=== PATIENT | female | born 1990 | race Caucasian/White ===

== ENCOUNTER 2018-06-15 12:56 | Day surgery (SDC) | payer OTHER ==
[2018-06-15] MEDS ORDERED: ONDANSETRON 4 MG/2 ML VIAL IVP STA (13:32)
[2018-06-15] MEDS ORDERED: SODIUM CHLORIDE 0.9% 1,000 ML IV ONE (13:32)
--- NOTE | 2018-06-15 13:33 | ED Physician Documentation ---
PD HPI ABD PAIN - Stated complaint Stated Complaint: R SIDE PX - Chief complaint Chief Complaint: Abd Pain - History obtained from History obtained from: Patient - History of Present Illness Timing - onset: Other (Since yesterday she has had gradual onset waxing and single episode of a loose stool. She has no history of abdominal surgeries. The pain does not radiate. She declines pain medication on initial evaluation. She denies fevers. She saw a urologist yesterday for frequent UTIs, her last UTI was about 6 months ago. She has no current UTI symptoms.) Review of Systems Ten Systems: 10 systems reviewed and negative Constitutional: denies: Fever, Chills Throat: denies: Dental pain / toothache, Sore throat Cardiac: denies: Chest pain / pressure, Palpitations Respiratory: denies: Dyspnea, Cough PD PAST MEDICAL HISTORY - Present Medications Home Medications: Ambulatory Orders Medication Instructions Recorded Confirmed No Known Home Medications 06/15/18 06/15/18 - Allergies Allergies/Adverse Reactions: Allergies Allergy/AdvReac Type Severity Reaction Status Date / Time No Known Drug Allergies Allergy Verified 06/15/18 13:02 PD ED PE NORMAL - Vitals Vital signs reviewed: Yes - General General: Alert and oriented X 3, No acute distress - HEENT HEENT: PERRL, EOMI - Neck Neck: Supple, no meningeal sign, No bony TTP - Cardiac Cardiac: RRR, No murmur - Respiratory Respiratory: No respiratory distress, Clear bilaterally - Abdomen Abdomen: Normal bowel sounds, Soft, Other (++ RLQ TTP, No G/R) - Back Back: No CVA TTP, No spinal TTP - Derm Derm: Normal color, Warm and dry - Extremities Extremities: No edema, No calf tenderness / cord - Neuro Neuro: Alert and oriented X 3, Normal speech Results - Vitals Vitals: Vital Signs - 24 hr 06/15/18 06/15/18 06/15/18 13:00 16:34 19:02 Temperature 36.8 C 37.1 C 37.0 C Heart Rate 85 70 84 Respiratory 18 16 16 Rate Blood Pressure 125/61 113/70 117/92 H O2 Saturation 100 100 100 Oxygen O2 Source Room air - Labs Labs: Laboratory Tests 06/15/18 06/15/18 06/15/18 13:20 13:44 13:44 WBC 7.9 RBC 4.71 Hgb 14.0 Hct 40.3 MCV 85.5 MCH 29.7 MCHC 34.7 RDW 12.8 Plt Count 273 MPV 8.3 Neut # (Auto) 5.0 Lymph # (Auto) 2.3 [place] # (Auto) 0.4 Eos # (Auto) 0.1 Baso # (Auto) 0.1 Absolute Nucleated RBC 0.00 Nucleated RBC % 0.0 Sodium 137 Potassium 3.4 L Chloride 103 Carbon Dioxide 27 Anion Gap 7.0 BUN 10 Creatinine 0.7 Estimated GFR (MDRD) 100 Glucose 71 Calcium 8.8 Total Bilirubin 1.0 AST 15 ALT 13 Alkaline Phosphatase 41 L Total Protein 7.9 Albumin 4.5 Globulin 3.4 Albumin/Globulin Ratio 1.3 Lipase 30 Urine Color YELLOW Urine Clarity CLOUDY Urine pH 6.5 Ur Specific [place] 1.025 Urine Protein NEGATIVE Urine Glucose (UA) NEGATIVE Urine Ketones NEGATIVE Urine Occult Blood NEGATIVE Urine Nitrite POSITIVE H Urine Bilirubin NEGATIVE Urine Urobilinogen 0.2 (NORMAL) Ur Leukocyte Esterase NEGATIVE Urine RBC 0-5 Urine WBC 6-10 H Ur Squamous Epith Cells FEW Squamous Urine Bacteria Moderate H Urine Mucus Few Strands Ur Microscopic Review INDICATED Urine Culture Comments INDICATED Urine HCG, Qual NEGATIVE - Rads (name of study) CT A/P Radiology: EMP read contemporaneously (Equivocal appendiceal findings with dilated mid appendix) PD MEDICAL DECISION MAKING - ED course ED course: 28-year-old woman with a decent exam and story for appendicitis and an equivocal CT and white count. Spoke with the surgeon, Dr. Abbott who will take her to the OR for laparoscopy. Departure - Departure Disposition: ED Transfer to [facility] Clinical Impression: Appendicitis Condition: Stable Discharge Date/Time: 06/15/18 18:12
[2018-06-15 13:43] LABS: BILIRUBIN,URINE NEGATIVE (NEGATIVE); GLUCOSE, URINE (UA) NEGATIVE (NEGATIVE); KETONES,URINE (UA) NEGATIVE (NEGATIVE); LEUKOCYTE ESTERASE, URINE NEGATIVE (NEGATIVE); NITRITE,URINE POSITIVE (NEGATIVE); OCCULT BLOOD,URINE NEGATIVE (NEGATIVE); PH,URINE 6.5 PH (5.0-7.5); PROTEIN,URINE NEGATIVE (NEGATIVE); UROBILINOGEN,URINE 0.2 (NORMAL) E.U./dL (NORMAL)
[2018-06-15 13:45] LABS: CLARITY,URINE CLOUDY (CLEAR)
[2018-06-15 13:46] LABS: HCG UR QUAL NEGATIVE
[2018-06-15 13:51] LABS: BASOPHILS # (AUTO) 0.1 10^3/uL (0.0-0.1); BASOPHILS % (AUTO) 0.7 %; EOSINOPHILS # (AUTO) 0.1 10^3/uL (0.0-0.7); EOSINOPHILS % (AUTO) 0.7 %; LYMPHOCYTES # (AUTO) 2.3 10^3/uL (1.5-3.5); LYMPHOCYTES % (AUTO) 29.8 %; MEAN CORPUSCULAR HEMOGLOBIN 29.7 pg (27.0-31.0); MEAN CORPUSCULAR HGB CONC 34.7 g/dL (32.0-36.0); MEAN CORPUSCULAR VOLUME 85.5 fL (81.0-99.0); MEAN PLATELET VOLUME 8.3 fL (7.9-10.8); MONOCYTES # (AUTO) 0.4 10^3/uL (0.0-1.0); MONOCYTES % (AUTO) 5.5 %; NEUTROPHILS % (AUTO) 63.3 %; PLT - PLATELET COUNT 273 10^3/uL (130-450); RED BLOOD COUNT 4.71 10^6/uL (4.20-5.40); RED CELL DISTRIBUTION WIDTH 12.8 % (12.0-15.0); WHITE BLOOD COUNT 7.9 x10^3/uL (4.8-10.8)
[2018-06-15 13:54] LABS: BACTERIA,URINE Moderate /HPF (None Seen); MUCUS,URINE Few Strands; RBC,URINE 0-5 /HPF (0-5); SQUAMOUS EPITHELIAL CELL,UR FEW Squamous (<= Few)
[2018-06-15 14:02] LABS: ALBUMIN 4.5 g/dL (3.2-5.5); ALBUMIN/GLOBULIN RATIO 1.3 (1.0-2.2); CALCIUM 8.8 mg/dL (8.5-10.3); CREATININE 0.7 mg/dL (0.4-1.0); TOTAL PROTEIN 7.9 g/dL (6.7-8.2)
[2018-06-15] MEDS ORDERED: IOVERSOL 320 100 ML VIAL IVP ONE ×2 (14:25→14:35)
[2018-06-15] MEDS ORDERED: KETOROLAC 30 MG/ML VIAL IVP STA (15:24)
--- NOTE | 2018-06-15 16:11 | CT Report ---
Reason: IV only, RLQ pain Procedure Date: 06/15/2018 Accession Number: [id number] / [id number] Procedure: CT - Abdomen/Pelvis W/ CPT Code: FULL RESULT: EXAM: CT ABDOMEN AND PELVIS WITH CONTRAST. EXAM DATE: 06/15/2018 02:41 PM. CLINICAL HISTORY: IV only, right lower quadrant pain. COMPARISONS: None. TECHNIQUE: Routine helical CT imaging was performed through the abdomen and pelvis. IV contrast: CE. Enteric contrast: No. Reconstructions: Coronal and sagittal. In accordance with CT protocol optimization, one or more of the following dose reduction techniques were utilized for this exam: automated exposure control, adjustment of mA and/or KV based on patient size, or use of iterative reconstructive technique. FINDINGS: Lung Bases: Unremarkable. Liver: Normal. No masses. Gallbladder/Bile Ducts: Decompressed but otherwise normal in appearance. No biliary ductal dilatation. Spleen: Normal. Pancreas: Normal. Adrenal Glands: Normal. Kidneys: Normal. No masses or hydronephrosis. Peritoneal Cavity/Bowel: No free fluid, free air or adenopathy. No masses or acute inflammatory process. The appendix is elongated and well visualized; there is borderline thickening/increased density of 1.5 cm long segment of the mid appendix measuring 8 mm in diameter. There is air within the lumen proximal and distal to this segment. No appreciable periappendiceal inflammation. Reference series 5 image 22, series 3 image 52. Pelvic Organs: Normal. The bladder and visualized pelvic organs are within normal limits. T-shaped IUD is noted within the uterus. Vasculature: No aneurysms or other significant abnormality. Bones: No significant abnormality. Other: None. IMPRESSION: 1. Equivocal appendiceal findings with short segment thickening/increased diameter of the mid appendix as described without other CT findings of acute appendicitis. If appropriate based on clinical and laboratory findings, consider observation followed by repeat imaging as clinically indicated. RADIA
[2018-06-15] MEDS ORDERED: PIPERACILLIN/TAZOBACTAM 3.375 GM in SODIUM CHLORIDE 0.9% MINIBAG 100 ML IV STA (16:26)
[2018-06-15] MEDS ORDERED: oxyCODONE/ACET 5/325 Prepack 4 PO STA (17:24)
--- NOTE | 2018-06-15 17:27 | ANESTHESIA ---
Pre-Anesthesia VS, & Labs - Diagnosis appendicitis - Procedure laparoscopic appendectomy Vital Signs: Temp Pulse Resp BP Pulse Ox 37.1 C 70 16 113/70 100 06/15/18 16:34 06/15/18 16:34 06/15/18 16:34 06/15/18 16:34 06/15/18 16:34 Height 5 ft Weight (kg) 68.039 kg Body Mass Index 29.2 - NPO Other (last ate 12 noon today) - Is Patient ?: No - Lab Results Current Lab Results: Laboratory Tests 06/15/18 13:44: Sodium 137, Potassium 3.4 L, Chloride 103, Carbon Dioxide 27, Anion Gap 7.0, BUN 10, Creatinine 0.7, Estimated GFR (MDRD) 100, Glucose 71, Calcium 8.8, Total Bilirubin 1.0, AST 15, ALT 13, Alkaline Phosphatase 41 L, Total Protein 7.9, Albumin 4.5, Globulin 3.4, Albumin/Globulin Ratio 1.3, Lipase 30 06/15/18 13:44: WBC 7.9, RBC 4.71, Hgb 14.0, Hct 40.3, MCV 85.5, MCH 29.7, MCHC 34.7, RDW 12.8, Plt Count 273, MPV 8.3, Neut # (Auto) 5.0, Lymph # (Auto) 2.3, [place] # (Auto) 0.4, Eos # (Auto) 0.1, Baso # (Auto) 0.1, Absolute Nucleated RBC 0.00, Nucleated RBC % 0.0 Fish Bones: 06/15/18 13:44 06/15/18 13:44 Home Medications and Allergies Home Medications: Ambulatory Orders No Known Home Medications 06/15/18 Active Medications Oxycodone/Acetaminophen (Percocet 5 Mg/325 Mg Prepack 4) 1 bottle PO ONCE STA Stop: 06/15/18 17:25 No Known Home Medications 06/15/18 Allergies/Adverse Reactions: Allergies Allergy/AdvReac Type Severity Reaction Status Date / Time No Known Drug Allergies Allergy Verified 06/15/18 13:02 Anes History & Medical History - Anesthetic History Anesthesia Complications: reports: No previous complications Family history of Anesthesia Complications: Denies Family history of Malignant Hyperthermia: Denies - Medical History Cardiovascular: reports: None Pulmonary: reports: None Gastrointestinal: reports: None Urinary: reports: Chronic bladder infection Neuro: reports: None Musculoskeletal: reports: None Endocrine/Autoimmune: reports: None Blood Disorders: reports: None Skin: reports: None Smoking Status: Never smoker Exam General: Alert, Oriented x3, Cooperative, No acute distress Dental: Other (caps) Mouth Openin Fingerbreadth Neck Mobility: Normal Mallampati classification: II Thyromental Distance: 4-6 cm Respiratory: Lungs clear, Normal breath sounds, No respiratory distress, No accessory muscle use Cardiovascular: Regular rate, Normal S1, Normal S2 Mental/Cognitive Status: Alert/Oriented X3, Normal for patient Cognitive Status: Within normal limits Plan Anesthesia Type: General Consent for Procedure(s) Verified and Reviewed: No Code Status: Attempt Resuscitation ASA classification: 1-Healthy patient Is this case an emergency?: Yes
[2018-06-15] MEDS ORDERED: BUPIVACAINE 0.5% PF 30 ML VIAL ONE (17:52)
[2018-06-15] MEDS ORDERED: BUPIVACAINE 0.5% PF 30 ML VIAL INFIL ONE (18:32)
[2018-06-15] MEDS ORDERED: LACTATED RINGERS 1,000 ML IV ONE (18:33)
[2018-06-15] MEDS ORDERED: SUGAMMADEX 200 MG/2 ML VIAL IVP ONE ×2 (18:41→19:00)
--- NOTE | 2018-06-15 18:56 | CONSULTATION NOTE ---
Referring Provider Name of Referring Provider:: Dr. Fred Osman Consult Date: 06/15/18 Chief Complaint - Chief Complaint Chief Complaint: Right lower quadrant pain History of Present Illness - Admitted From Admitted From:: Not admittedkept as an outpatient. - History Obtained From Records Reviewed: Yes History obtained from: Patient and , Dr. Osman Exam Limitations: None - History of Present Illness HPI Comment/Other: I was called by Dr. Acosta to evaluate this very pleasant 28-year-old female for the possibility of acute appendicitis. The patient was evaluated in room 3 at [facility]'s emergency department. The patient has a 24- hour history of epigastric pain localizing to the right lower quadrant associated with anorexia and nausea but no vomiting. The pain was worsening necessitating her coming to the emergency department. Please note the history and physical was done in room 3 in the presence of her and 3 of her 4 children. She is allergic to fresh pineapple. 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 : reports: Chronic bladder infection HEENT: reports: None Psych: reports: None Musculoskeletal: reports: None Derm: reports: None MRSA Hx?: No - POLST Patient has POLST: No Meds/Allgy - Home Medications Home Medications: Ambulatory Orders Medication Instructions Recorded Confirmed No Known Home Medications 06/15/18 06/15/18 - Allergies Allergies/Adverse Reactions: Allergies Allergy/AdvReac Type Severity Reaction Status Date / Time No Known Drug Allergies Allergy Verified 06/15/18 13:02 Review of Systems - Constitutional Constitutional: denies: Fatigue, Fever - Eyes Eyes: denies: Pain - Ears, Nose & Throat Ears, Nose & Throat: denies: Ear pain - Cardiovascular Cariovascular: denies: Irregular heart rate, Palpitations, Chest pain - Respiratory Respiratory: denies: Cough, Sputum production, Wheezing - Gastrointestinal Gastrointestinal: reports: Abdominal pain, Nausea. denies: Vomiting - Genitourinary Genitourinary: denies: Dysuria - Musculoskeletal Musculoskeletal: denies: Muscle pain, Back pain - Integumentary Integumentary: denies: Rash - Neurological Neurological: denies: General weakness, Focal weakness Exam - Vital Signs Reviewed Vital Signs: Yes Vital Signs: Vital Signs x48h Temp Pulse Resp BP Pulse Ox 06/15/18 16:34 37.1 C 70 16 113/70 100 06/15/18 13:00 36.8 C 85 18 125/61 100 - Physical Exam General Appearance: positive: No acute distress Eyes Bilateral: positive: No lid inflammation, Conjunctivae nml, No scleral icterus ENT: positive: Dry mucous membranes Neck: positive: Trachea midline Respiratory: positive: Chest non-tender, No respiratory distress, Breath sounds nml Cardiovascular: positive: Regular rate & rhythm, No murmur, No gallop Abdomen: positive: No organomegaly, Nml bowel sounds, Tenderness (At McBurney's point.) Skin: positive: Color nml Extremities: positive: Non-tender, Nml appearance Neurologic/Psychiatric: positive: Oriented x3 Conclusion/Plan - Diagnosis Diagnosis: Acute appendicitis (nonruptured) - Plan Plan: Laparoscopic appendectomy, possible open appendectomy. The indications, procedure, alternatives including no surgery, possible risks including infection (deep or superficial), bleeding requiring transfusion (with all of its risks), and were fully explained to the patient and all questions answered. I also explained the pathophysiology. I explained that following the surgery I did not want her lifting anything over 15 pounds for 6 weeks to allow for optimal healing and to decrease the likelihood that a hernia would occur. All questions were fully answered. Verbal and written consent was obtained. The patient, in preparation for surgery will be nothing by mouth, and receive 3.375 g of Zosyn with induction. I asked her to contact me with any surgical questions and her concerns and she stated that she would. I asked her to let me know if there is any way we can make her stay at [facility] more comfortable and she stated that she would let me know. The plan is to do this operation as an outpatient procedure and to discharge her home following the procedure. 45 minutes of [id number] time spent with the patient, the majority of which was spent in discussion, coordination of care, and completion of the requisite paperwork - Lab Results Lab results reviewed: Yes Fish Bones: 06/15/18 13:44 06/15/18 13:44 - Diagnostic Imaging Results Diagnostic Imaging Results: positive: Final report reviewed, Read independently Diagnostic Imaging Results Comments: Somewhat equivocal findings on radiology but consistent with a mid appendiceal fecalith.
[2018-06-15] MEDS ORDERED: PROPOFOL 200 MG/20 ML VIAL IVP ONE (19:00)
[2018-06-15] MEDS ORDERED: fentaNYL 100 MCG/2 ML VIAL IVP ONE (19:00)
[2018-06-15] MEDS ORDERED: ONDANSETRON 4 MG/2 ML VIAL IVP ONE (19:00)
[2018-06-15] MEDS ORDERED: ACETAMINOPHEN 1,000 MG/100 ML 100 ML IV ONE (19:00)
[2018-06-15] MEDS ORDERED: ROCURONIUM 50 MG/5 ML VIAL IVP ONE (19:00)
[2018-06-15] MEDS ORDERED: KETOROLAC 30 MG/ML VIAL IVP ONE (19:00)
[2018-06-15] MEDS ORDERED: HYDROcod/ACETAM 5/325 MG TABLET PO PRN (19:02)
[2018-06-15] MEDS ORDERED: HYDROmorphone 0.5 MG/0.5 ML SYRINGE IVP PRN (19:02)
[2018-06-15] MEDS ORDERED: ONDANSETRON 4 MG/2 ML VIAL IVP PRN (19:02)
--- NOTE | 2018-06-15 19:02 | OPERATIVE REPORT ---
Operative Report - General Procedure Date: 06/15/18 Planned Procedure: Laparoscopic appendectomy, possible open appendectomy Pre-Op Diagnosis: Acute appendicitis (nonruptured) Procedure Performed: Laparoscopic appendectomy Post Op Diagnosis: Same - Procedure Note Primary Surgeon: Dr. Krishna Abbott Anesthesia Provider: Dr. Krishna Zuniga Anesthesia Technique: General ET tube, Local (30 mL of half percent Marcaine) IV Fluids (mL): 500 Estimated Blood Loss (mL): 5 Drain/Tube Type: Other (None.) Complications: None. - Other Other Information/Narrative: OPERATIVE DESCRIPTION/REPORT: After verbal and written informed consent was obtained detailing the risks of infection, bleeding requiring transfusion with its risks, and , and after I met with the patient confirming the surgery and the site of the surgery, the patient was brought to the operative suite and placed supine on the operating table. Great care was taken to avoid pressure points to prevent pressure necrosis or nerve injury. Monitoring devices were applied along with TEDs and pneumatic compressive stockings (to prevent DVT). The patient received preoperative antibiotics for surgical prophylaxis. Dr. Krishna Zuniga sedated and anesthetized the patient for the entire procedure. The patient was prepped and draped in the usual sterile manner. With the patient draped my initials were clearly visible. A "time in" then confirmed that the patient was identified with 3 identifiers (name, date and medical record number), the history and physical was in the chart, the signed consent confirming the procedure was in the chart, the patient was in the correct position, the aforementioned prophylactic measures were in place or given, we had the correct personnel and equipment to complete the procedure and that anesthesia, surgery and nursing were given an opportunity to express any concerns. With the agreement of everyone in the room, we proceeded with the operation. A 2 cm incision umbilical incition was made and dissection down to the fascia was completed in a blunt and sharp manner. The fascia was then cleared of subcutaneous tissue using a tonsil clamp and a small incision was made in the fascia gaining entry into the abdomen without incident. A 12 mm blunt tipped balloon tipped Franklin port was placed into the abdomen and the balloon inflated to keep it in place. The pneumoperitoneum was then established using carbon dioxide insufflation to a steady state pressure of 15 mmHg. Two additional 5 mm ports were placed in the midline above and below the umbilicus. The patient was then rotated slightly to their left and slightly head down (Trendelenberg). The appendix was clearly identified and noted to be thickened and clearly consistent with acute appendicitis. The end of the appendix was grasped with a Prestige grasper and lifted anteriorly thus revealing the appendiceal mesentery. The mesentery was taken using sequential application of the Ligasure until the base of the appendix was visualized without any adherent tissue. Adhesions to the abdominal wall were taken using sequential application of the LigaSure. The base of the appendix was then stapled and transected using a laparoscopic vascular stapler. Visualization of the staple line revealed absolutely no bleeding or leak of bowel contents. Photographs were taken. The appendix was then place into an endopouch for the remainder of the case. The patient was then rotated to lie flat. The fascia and skin were then injected with the 30 cc of % marcaine for pain control. The insufflation was released and the ports removed. With the removal of the umbilical port the Endopouch containing the appendix was also removed. The fascial defect was then approximated using 0-Vicryl suture in a simple interrupted manner taking care to bury the knots. The skin incisions were approximated with 4-0 Monocryl in a subcuticular fashion. The surgical prep was removed, the skin was prepped with benzoin and steristrips were applied. A dressing was applied. At this point a time out was performed that confirmed that all the counts were correct, the procedure that was performed, the blood loss, the urine output, the IV fluids administered, and the patients condition. Having tolerated the procedure well, the patient was subsequently extubated and taken to recovery room in good and stable condition. [employer] disclaimer: This document was created in part using voice recognition technology. Because of the inherent limitations of the system ([employer]'s [employer] Dict[employer] user manual states that the licensee understands that speech recognition is a statistical process and that recognition errors are inherent in the process), occasional same sounding word substitutions and grammatical errors do occur and persist despite proofreading. Please read this document for context.
[2018-06-15] MEDS: fentaNYL 100 MCG/2 ML VIAL ONE ×2 (19:14→19:21)
[2018-06-15] MEDS ORDERED: SODIUM CHLORIDE FLUSH 0.9% 10 ML SYRINGE ONE (21:38)
[2018-06-15 22:37] VITALS: BP 101/59
== END 2018-06-15 23:00 | disposition home or self-care (01) ==
LOC: ED 12:56 → SDS 17:16 → MS2 19:22 → SDS 23:00
PROVIDERS: ATTEND Surgery
PROC: 0DTJ4ZZ Resection of Appendix, Percutaneous Endoscopic Approach (ICD-10-PCS; principal; 2018-06-15 18:22)
DX: K35.80 Unspecified acute appendicitis (principal); Z87.440 Personal history of urinary (tract) infections
CPT/HCPCS: 36415; 44970; 74177; 80053; 81001; 81025; 83690; 85025; 87086; 87181; 96361; 96365; 96375; 99283; 99284; A9270; J0131; J7120; Q9967; 81003

== ENCOUNTER 2018-07-03 12:49 | Emergency (ER) | payer OTHER ==
[2018-07-03] MEDS ORDERED: MORPHINE 2 MG/ML CARPUJECT IVP STA (13:44)
[2018-07-03] MEDS ORDERED: ONDANSETRON 4 MG/2 ML VIAL IVP STA (13:44)
--- NOTE | 2018-07-03 13:46 | ED Physician Documentation ---
PD HPI ABD PAIN - Stated complaint Stated Complaint: SIDE PX - Chief complaint Chief Complaint: Abd Pain - History obtained from History obtained from: Patient - History of Present Illness Timing - onset: Yesterday (She had a laparoscopic appendectomy a little over [address] was equivocal, the pathology was negative. She did have a concomitant UTI. She has had on and off mild right-sided abdominal pain ever since worse since yesterday with mild nausea but no lack of appetite or fevers. She is on her menses at the normal time just finishing up.) Review of Systems Ten Systems: 10 systems reviewed and negative Constitutional: denies: Fever, Chills Cardiac: denies: Chest pain / pressure, Palpitations GI: reports: Abdominal Pain, Nausea. 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 : Chronic bladder infection HEENT: None Psych: None Musculoskeletal: None Derm: None - Past Surgical History Past Surgical History: No - Present Medications Home Medications: Ambulatory Orders Medication Instructions Recorded Confirmed Hydrocodone/Acetaminophen 1 - 2 each PO Q6H PRN #7 tablet 07/03/18 [Hydrocodon-Acetaminophen 5-325] Ondansetron Odt [Zofran] 4 mg TL Q6H PRN #7 tablet 07/03/18 - Allergies Allergies/Adverse Reactions: Allergies Allergy/AdvReac Type Severity Reaction Status Date / Time No Known Drug Allergies Allergy Verified 07/03/18 13:09 - Social History Does the pt smoke?: No Smoking Status: Never smoker Does the pt drink ETOH?: Yes Does the pt have substance abuse?: No - Immunizations Immunizations are current?: Yes - POLST Patient has POLST: No PD ED PE NORMAL - Vitals Vital signs reviewed: Yes - General General: Alert and oriented X 3, No acute distress - Respiratory Respiratory: No respiratory distress, Clear bilaterally - Abdomen Abdomen: Normal bowel sounds, Soft, Other (Very mild right-sided abdominal tenderness, laparoscopic port incisions look great.) - Back Back: No CVA TTP, No spinal TTP - Derm Derm: Normal color, Warm and dry - Extremities Extremities: No edema, No calf tenderness / cord - Neuro Neuro: Alert and oriented X 3, Normal speech Results - Vitals Vitals: Vital Signs - 24 hr 07/03/18 13:05 Temperature 36.2 C L Heart Rate 84 Respiratory 14 Rate Blood Pressure 115/79 O2 Saturation 100 Oxygen O2 Source Room air - Labs Labs: Laboratory Tests 07/03/18 07/03/18 07/03/18 13:55 13:58 13:58 WBC 6.9 RBC 4.72 Hgb 13.8 Hct 40.6 MCV 86.1 MCH 29.2 MCHC 33.9 RDW 13.2 Plt Count 308 MPV 8.2 Neut # (Auto) 4.4 Lymph # (Auto) 2.0 [place] # (Auto) 0.4 Eos # (Auto) 0.1 Baso # (Auto) 0.1 Absolute Nucleated RBC 0.00 Nucleated RBC % 0.0 Sodium 137 Potassium 3.8 Chloride 104 Carbon Dioxide 27 Anion Gap 6.0 BUN 12 Creatinine 0.7 Estimated GFR (MDRD) 100 Glucose 81 Calcium 9.1 Total Bilirubin 1.0 AST 16 ALT 16 Alkaline Phosphatase 39 L Total Protein 7.9 Albumin 4.6 Globulin 3.3 Albumin/Globulin Ratio 1.4 Lipase 29 Urine Color LT. YELLOW Urine Clarity CLEAR Urine pH 7.0 Ur Specific [place] <=1.005 Urine Protein NEGATIVE Urine Glucose (UA) NEGATIVE Urine Ketones NEGATIVE Urine Occult Blood NEGATIVE Urine Nitrite NEGATIVE Urine Bilirubin NEGATIVE Urine Urobilinogen 0.2 (NORMAL) Ur Leukocyte Esterase NEGATIVE Ur Microscopic Review NOT INDICATED Urine Culture Comments NOT INDICATED Urine HCG, Qual NEGATIVE PD MEDICAL DECISION MAKING - ED course ED course: 28-year-old woman who is about 2 weeks out from laparoscopic appendectomy, noted to be actually had negative lap based on pathology but had a concomitant UTI at the time presents again with right-sided abdominal pain but a fairly benign examination. Her diagnostics are negative without a white count or abnormal urinalysis. She was reexamined at 2:45 PM and was all but nontender. I offered repeat CT imaging versus watchful waiting and she opted for the latter. Departure - Departure Disposition: 01 Home, Self Care Clinical Impression: Abdominal pain Qualifiers: Abdominal location: right lower quadrant Qualified Code(s): R10.31 - Right lower quadrant pain Condition: Good Record reviewed to determine appropriate education?: Yes Instructions: ED Abdominal Pain Unkn Cause Prescriptions: Hydrocodone/Acetaminophen [Hydrocodon-Acetaminophen 5-325] 1 - 2 each PO Q6H PRN #7 tablet PRN Reason: pain Ondansetron Odt [Zofran] 4 mg TL Q6H PRN #7 tablet PRN Reason: Nausea / Vomiting Comments: Return immediately if you develop a fever or worsen. Or if not better in 12-24 hours for reevaluation.
[2018-07-03] MEDS ORDERED: MORPHINE 2 MG/ML CARPUJECT ONE (13:56)
[2018-07-03 14:15] LABS: BASOPHILS # (AUTO) 0.1 10^3/uL (0.0-0.1); BASOPHILS % (AUTO) 1.3 %; EOSINOPHILS # (AUTO) 0.1 10^3/uL (0.0-0.7); EOSINOPHILS % (AUTO) 1.1 %; HGB - HEMOGLOBIN 13.8 g/dL (12.0-16.0); MEAN CORPUSCULAR HEMOGLOBIN 29.2 pg (27.0-31.0); MEAN CORPUSCULAR HGB CONC 33.9 g/dL (32.0-36.0); MEAN CORPUSCULAR VOLUME 86.1 fL (81.0-99.0); MEAN PLATELET VOLUME 8.2 fL (7.9-10.8); MONOCYTES # (AUTO) 0.4 10^3/uL (0.0-1.0); MONOCYTES % (AUTO) 5.2 %; NEUTROPHILS # (AUTO) 4.4 10^3/uL (1.5-6.6); NEUTROPHILS % (AUTO) 63.4 %; PLT - PLATELET COUNT 308 10^3/uL (130-450); RED BLOOD COUNT 4.72 10^6/uL (4.20-5.40); RED CELL DISTRIBUTION WIDTH 13.2 % (12.0-15.0); WHITE BLOOD COUNT 6.9 x10^3/uL (4.8-10.8)
[2018-07-03 14:21] LABS: ALBUMIN 4.6 g/dL (3.2-5.5); ALBUMIN/GLOBULIN RATIO 1.4 (1.0-2.2); CALCIUM 9.1 mg/dL (8.5-10.3); CREATININE 0.7 mg/dL (0.4-1.0); TOTAL PROTEIN 7.9 g/dL (6.7-8.2)
[2018-07-03 14:36] LABS: BILIRUBIN,URINE NEGATIVE (NEGATIVE); GLUCOSE, URINE (UA) NEGATIVE (NEGATIVE); KETONES,URINE (UA) NEGATIVE (NEGATIVE); LEUKOCYTE ESTERASE, URINE NEGATIVE (NEGATIVE); NITRITE,URINE NEGATIVE (NEGATIVE); OCCULT BLOOD,URINE NEGATIVE (NEGATIVE); PROTEIN,URINE NEGATIVE (NEGATIVE); UROBILINOGEN,URINE 0.2 (NORMAL) E.U./dL (NORMAL)
[2018-07-03 14:38] LABS: CLARITY,URINE CLEAR (CLEAR); HCG UR QUAL NEGATIVE
[2018-07-03 15:12] VITALS: BP 115/80
== END 2018-07-03 15:15 | disposition home or self-care (01) ==
LOC: ED 12:49
DX: R10.31 Right lower quadrant pain (principal); Z98.890 Other specified postprocedural states
CPT/HCPCS: 36415; 80053; 81001; 81003; 81025; 83690; 85025; 87086; 96374; 99283

== ENCOUNTER 2018-10-09 13:08 | Outpatient (CLI) | payer OTHER | END 2018-10-09 13:09 | disposition home or self-care (01) | LOC: SC 13:08 | PROVIDERS: ATTEND Internal Medicine Pulmonary Disease | DX: R06.83 Snoring (principal); R06.81 Apnea, not elsewhere classified; R41.89 Other symptoms and signs involving cognitive functions and awareness; G47.10 Hypersomnia, unspecified; G47.8 Other sleep disorders; R51 Headache | CPT/HCPCS: 99203; 99212 ==

== ENCOUNTER 2018-11-23 20:25 | Outpatient (CLI) | payer OTHER | END 2018-11-23 20:26 | disposition home or self-care (01) | LOC: SC 20:25 | PROVIDERS: ATTEND Internal Medicine Pulmonary Disease | DX: R06.83 Snoring (principal); G47.8 Other sleep disorders | CPT/HCPCS: 95810 ==

== ENCOUNTER 2018-12-18 15:36 | Outpatient (CLI) | payer OTHER | END 2018-12-18 15:37 | disposition home or self-care (01) | LOC: SC 15:36 | PROVIDERS: ATTEND Nurse Practitioner Family | DX: R06.83 Snoring (principal); G47.10 Hypersomnia, unspecified; R53.83 Other fatigue | CPT/HCPCS: 99212; 99213 ==

== ENCOUNTER 2019-11-07 17:22 | Emergency (ER) | payer OTHER ==
[2019-11-07 17:53] VITALS: BP 125/87
[2019-11-07] MEDS: CYCLOBENZAPRINE 10 MG TABLET PO STA (18:16)
--- NOTE | 2019-11-07 18:16 | ED Physician Documentation ---
History of Present Illness - Stated complaint Stated Complaint: NECK PAIN - Chief complaint Chief Complaint: Trauma Hd/Nk - History obtained from History obtained from: Patient - History of Present Illness Timing: Today Pain level max: 8 Pain level now: 8 - Additonal information Additional information: 29-year-old female states that she was driving today when she felt like she had a cramp in her neck, she twisted her neck and now feels like there is a spasm in the back of her neck. Has not taken anything for this. Drove straight to the emergency department. No numbness or tingling. No syncope or near syncope. No anterior or lateral neck pain. 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 : Chronic bladder infection HEENT: None Psych: None Musculoskeletal: None Derm: None - Past Surgical History Past Surgical History: No General: Appendectomy - Present Medications Home Medications: Ambulatory Orders Medication Instructions Recorded Confirmed Cyclobenzaprine [Flexeril] 10 mg PO TID PRN #20 tablet 11/07/19 Meloxicam [Mobic] 7.5 mg PO BID PRN #20 tablet 11/07/19 - Allergies Allergies/Adverse Reactions: Allergies Allergy/AdvReac Type Severity Reaction Status Date / Time No Known Drug Allergies Allergy Verified 11/07/19 17:28 - Social History Does the pt smoke?: No Smoking Status: Never smoker Does the pt drink ETOH?: Yes Does the pt have substance abuse?: No - Immunizations Immunizations are current?: Yes - POLST Patient has POLST: No PD ED PE NORMAL - Vitals Vital signs reviewed: Yes - General General: Alert and oriented X 3, No acute distress, Well developed/nourished - HEENT HEENT: Ears normal, Moist mucous membranes, Pharynx benign - Neck Neck: Supple, no meningeal sign, No bony TTP, No JVD, No bruit, Other (Tender to palpation right posterior neck. No midline tenderness. No step-off or deformity. Limited range of motion secondary to pain.) - Cardiac Cardiac: RRR, No murmur - Respiratory Respiratory: No respiratory distress, Clear bilaterally - Derm Derm: Warm and dry - Extremities Extremities: Normal ROM s pain - Neuro Neuro: Alert and oriented X 3, machine heel seat fitter 2-12 intact, No motor deficit, No sensory deficit, Normal speech - Psych Psych: Normal mood, Normal affect Results - Vitals Vitals: Vital Signs - 24 hr 11/07/19 11/07/19 17:28 17:52 Temperature 37.2 C Heart Rate 89 79 Respiratory 18 18 Rate Blood Pressure 123/80 125/87 H O2 Saturation 100 97 Oxygen O2 Source Room air PD MEDICAL DECISION MAKING - ED course Complexity details: considered differential, d/w patient ED course: Patient with what appears to be a neck spasm. Will place on meloxicam and Flexeril for home. Encouraged gentle stretching. Patient is well-appearing, nontoxic. Afebrile. No indication for imaging. No neurological deficits. Patient counseled regarding signs and symptoms for which I believe and urgent re-evaluation would be necessary. Patient with good understanding of and agreement to plan and is comfortable going home at this time This document was made in part using voice recognition software. While efforts are made to proofread this document, sound alike and grammatical errors may occur. Departure - Departure Disposition: 01 Home, Self Care Clinical Impression: Neck muscle spasm Condition: Good Instructions: ED Spasm Neck No Injury Follow-Up: Your,doctor in 1 week [Other] Prescriptions: Cyclobenzaprine [Flexeril] 10 mg PO TID PRN #20 tablet PRN Reason: Spasms Meloxicam [Mobic] 7.5 mg PO BID PRN #20 tablet PRN Reason: Pain Comments: Continue gentle stretching at home. Return if you worsen. Follow-up with your doctor for further care. Ice and/or heat may help as well. Do not drive or operate heavy machinery while taking the Flexeril.
[2019-11-07] MEDS: MELOXICAM 7.5 MG TABLET PO STA (18:17)
== END 2019-11-07 18:35 | disposition home or self-care (01) ==
LOC: ED 17:22
DX: M62.838 Other muscle spasm (principal)
CPT/HCPCS: 99282; 99284; A9270

== ENCOUNTER 2021-11-14 02:27 | Emergency (ER) | payer OTHER ==
--- NOTE | 2021-11-14 03:46 | ED Physician Documentation ---
PD HPI FEMALE - Stated complaint Stated Complaint: FEMALE - Chief complaint Chief Complaint: UTI - History obtained from History obtained from: Patient - History of Present Illness Timing - onset: Yesterday Timing - details: Gradual onset Associated symptoms: Dysuria, Urinary frequency. No: Fever Contributing factors: No: Recently seen: Not recently seen - Additional information Additional information: c/o burning dysuria, urinary frequency with little UO at a time. Symptoms began yesterday. Denies . She also wants to be tested for STDs. She has small amount vaginal discharge although she says not unusual for her Review of Systems Constitutional: denies: Fever GI: denies: Abdominal Pain : reports: Dysuria, Frequency, Discharge. 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 : Chronic bladder infection HEENT: None Psych: None Musculoskeletal: None Derm: None Other Past Medical History: Taking duloxetine for stomach issues - Past Surgical History Past Surgical History: No General: Appendectomy - Present Medications Home Medications: Ambulatory Orders Medication Instructions Recorded Confirmed DULoxetine [Cymbalta] 30 mg PO DAILY 11/14/21 11/14/21 - Allergies Allergies/Adverse Reactions: Allergies Allergy/AdvReac Type Severity Reaction Status Date / Time No Known Drug Allergies Allergy Verified 11/14/21 02:38 - Social History Does the pt smoke?: No Smoking Status: Never smoker Does the pt drink ETOH?: Yes Does the pt have substance abuse?: No - Immunizations Immunizations are current?: Yes - POLST Patient has POLST: No PD ED PE NORMAL - Vitals Vital signs reviewed: Yes - General General: Alert and oriented X 3, No acute distress, Well developed/nourished - Abdomen Abdomen: Soft, Non tender - Back Back: No CVA TTP Results - Vitals Vitals: Oxygen O2 Source Room air - Labs Labs: Laboratory Tests 11/14/21 11/14/21 02:47 02:47 Urine Color YELLOW Urine Clarity CLEAR Urine pH 6.0 Ur Specific [place] 1.015 Urine Protein NEGATIVE Urine Glucose (UA) NEGATIVE Urine Ketones NEGATIVE Urine Occult Blood NEGATIVE Urine Nitrite NEGATIVE Urine Bilirubin NEGATIVE Urine Urobilinogen 0.2 (NORMAL) Ur Leukocyte Esterase NEGATIVE Ur Microscopic Review NOT INDICATED Urine Culture Comments NOT INDICATED Urine HCG, Qual NEGATIVE Chlam trachomat DNA PCR NEGATIVE N.gonorrhoeae DNA (PCR) NEGATIVE T. vaginalis (PCR) NEGATIVE PD MEDICAL DECISION MAKING - ED course Complexity details: reviewed results, re-evaluated patient, considered differential, d/w patient ED course: Despite UTI symptoms, UA is normal. urine HCG is negative. Negative test for gonorrhea, chlamydia, trichomoniasis. Results reviewed with patient. Etiology of symptoms unclear at this time, encouraged to return if worse, follow up with primary care provider if symptoms do not resolve by Tuesday Departure - Departure Disposition: Home, Self Care Clinical Impression: Dysuria Condition: Good Instructions: ED Dysuria Uncertain Cause Comments: There is no evidence of urinary tract infection on the urinalysis performed tonight. You were also tested for gonorrhea, chlamydia, and trichomoniasis (these are sexually transmitted infections); these tests also resulted negative. The cause of your symptoms is not apparent at this time. Please return to the emergency department if your symptoms worsen or if you develop new concerning signs/symptoms (such as fever, abdominal or pelvic pain). Discharge Date/Time: 11/14/21 06:52
[2021-11-14 03:54] LABS: BILIRUBIN,URINE NEGATIVE (NEGATIVE); GLUCOSE, URINE (UA) NEGATIVE (NEGATIVE); KETONES,URINE (UA) NEGATIVE (NEGATIVE); LEUKOCYTE ESTERASE, URINE NEGATIVE (NEGATIVE); NITRITE,URINE NEGATIVE (NEGATIVE); OCCULT BLOOD,URINE NEGATIVE (NEGATIVE); PROTEIN,URINE NEGATIVE (NEGATIVE); UROBILINOGEN,URINE 0.2 (NORMAL) E.U./dL (NORMAL)
[2021-11-14 03:56] LABS: CLARITY,URINE CLEAR (CLEAR); HCG UR QUAL NEGATIVE
[2021-11-14 06:33] LABS: CHLAMYDIA TRACHOMATIS DNA NEGATIVE (NEGATIVE); NEISSERIA GONORRHOEAE DNA NEGATIVE (NEGATIVE); TRICHOMONAS VAGINALIS DNA NEGATIVE (NEGATIVE)
[2021-11-14] MEDS ORDERED: PHENAZOPYRIDINE 100 MG TABLET PO STA (06:43)
[2021-11-14 07:09] VITALS: BP 116/64
== END 2021-11-14 06:52 | disposition home or self-care (01) ==
LOC: ED 02:27
DX: R30.0 Dysuria (principal); R35.0 Frequency of micturition
CPT/HCPCS: 81003; 81025; 87491; 87591; 87661; 99282; 99283; A9270; 81001; 87086

== ENCOUNTER 2023-11-02 11:52 | Emergency (ER) | payer OTHER ==
[2023-11-02 12:06] VITALS: O2SAT 100
--- NOTE | 2023-11-02 12:59 | ED Physician Documentation ---
PD HPI UPPER EXT INJURY - Stated complaint Stated Complaint: RT SHOULDER PX - Chief complaint Chief Complaint: Ext Problem - History obtained from History obtained from: Patient - Additonal information Additional information: Patient is a 33-year-old female presenting for worsening of chronic right s houlder pain. Patient states she has been having shoulder pain for at least a year. She had an MRI in July that showed partial-thickness tear involving the distal supraspinatus extending to the musculotendinous junction.Additional partial-thickness tear to the distal infraspinatus and mild AC joint osteoarthritis. Patient states that today she has been having increased pain to the posterior shoulder. She reports she woke up with this discomfort. She reports it radiates down to the mid upper arm. She reports having some numbness and tingling in the shoulder blade region but denies any paresthesias down the arm. Denies any recent trauma. She has been undergoing physical therapy and was scheduled for a physical therapy tomorrow. Denies fever, neck pain, chest pain or shortness of air. 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 : Chronic bladder infection HEENT: None Psych: None Musculoskeletal: None Derm: None - Past Surgical History Past Surgical History: No General: Appendectomy - Present Medications Home Medications: Ambulatory Orders Medication Instructions Recorded Confirmed Celecoxib [Celebrex] 200 mg PO DAILY 11/02/23 11/02/23 Cyclobenzaprine [Flexeril] 10 mg PO TID PRN #20 tablet 11/02/23 Lidocaine Patch 5% [Lidoderm Patch] 1 patch TOP DAILY PRN #10 patch 11/02/23 - Allergies Allergies/Adverse Reactions: Allergies Allergy/AdvReac Type Severity Reaction Status Date / Time kiwi Allergy Itching Verified 11/02/23 12:03 pear Allergy Itching Verified 11/02/23 12:03 pineapple Allergy Itching Verified 11/02/23 12:03 - Social History Does the pt smoke?: No Smoking Status: Never smoker Does the pt drink ETOH?: Yes Does the pt have substance abuse?: No - Immunizations Immunizations are current?: Yes - POLST Patient has POLST: No PD ED PE NORMAL - General General: Alert and oriented X 3, No acute distress, Well developed/nourished - HEENT HEENT: Atraumatic, Moist mucous membranes - Neck Neck: Supple, no meningeal sign, No bony TTP - Cardiac Cardiac: RRR, Strong equal pulses - Respiratory Respiratory: No respiratory distress, Clear bilaterally - Abdomen Abdomen: Soft, Non tender - Back Back: No spinal TTP - Derm Derm: Warm and dry - Extremities Extremities: No deformity, Other (Normal strength with shoulder extension, arm flexion and extension, wrist extension and hand grasp; Sensation intact; Patient able to abduct as well as touch left hand to right shoulder but reports pain with extension behind her) - Neuro Neuro: Alert and oriented X 3, No motor deficit, No sensory deficit, Normal speech PD ED PE EXPANDED - Back Back visual: 1 - tenderness (muscle spasm) Results - Vitals Vitals: Vital Signs - 24 hr 11/02/23 11/02/23 12:00 13:12 Temperature 36.6 C Heart Rate 75 78 Respiratory 16 18 Rate Blood Pressure 129/89 H 126/78 O2 Saturation 100 100 Oxygen O2 Source Room air PD Medical Decision Making - ED course ED course: Patient with acute worsening of chronic right shoulder pain. No recent trauma or injury. Neurovascularly intact with no deficits to motor or sensation. Does not have any neck pain. She does have tenderness in the region of the posterior shoulder blade. Reports waking up like this. Does have tightness in this muscle region.Do not think emergent imaging is indicated at this time and patient declines x-ray to rule out fracture dislocation which also seems unlikely given her history. Patient agreeable to trial of muscle relaxers, lidocaine patch, anti-inflammatories and sling. She will continue to range of motion her shoulder. She is advised on follow-up with the [place] [facility] and aware of concerning symptoms to return for. Departure - Departure Disposition: 01 Home, Self Care Clinical Impression: Muscle spasm, Right shoulder pain Condition: Stable Instructions: ED Spasm Muscle, ED Shoulder Pain [facility] Follow-Up: [facility] [Provider Group] Prescriptions: Cyclobenzaprine [Flexeril] 10 mg PO TID PRN #20 tablet PRN Reason: Spasms Lidocaine Patch 5% [Lidoderm Patch] 1 patch TOP DAILY PRN #10 patch PRN Reason: pain Comments: I am sending prescriptions for muscle relaxer as well as lidocaine patches to [facility] in [place]. Please wear the sling for comfort but I would recommend getting your arm out of the sling to range of motion your shoulder several times a day. If your symptoms or not getting better over the next few days I would recommend follow-up with the [place] [facility]. Forms: PCP List, Activity restrictions Discharge Date/Time: 11/02/23 13:12
[2023-11-02] MEDS: LIDOCAINE PATCH 5% TOP STA (13:01)
[2023-11-02] MEDS: IBUPROFEN 800 MG TABLET PO STA (13:01)
[2023-11-02 13:16] VITALS: BP 126/78
== END 2023-11-02 13:12 | disposition home or self-care (01) ==
LOC: ED 11:52
DX: M62.838 Other muscle spasm (principal); M25.511 Pain in right shoulder; Z79.899 Other long term (current) drug therapy
CPT/HCPCS: 99282; 99283; A9270